=== PATIENT | female | born 1990 | race Caucasian/White ===

== ENCOUNTER 2017-09-05 22:42 | Emergency (ER) | payer OTHER ==
[~2017-09-05] VITALS: Ht 154.9 cm; Wt 94.3 kg
[~2017-09-05 22:42] MED LIST: ALLEGRA ALLERG180 MG PO; APRESOLINE25 MG PO; ATARAX,VISTARIL25 MG PO; AUGMENTIN875 MG PO; CAVAN-FOLATE D1 EACH PO; CEFDINIR300 MG PO; CEFUROXIME500 MG PO; CELLCEPT500 MG PO; CLARITIN10 M3 PO; CLARITIN10 MG PO; CYCLOSPORINE100 M2 PO; CYMBALTA30 MG PO; DOXEPIN HCL25 MG PO; EFFEXOR XR150 MG PO; EFFEXOR75 MG PO; ENDOCET 5-3251 EACH PO; FLEXERIL10 MG PO; GABAPENTIN300 MG PO; HYDRALAZINE HCL25 MG PO; KLONOPIN0.5 M1 PO; LAMICTAL100 MG PO; LEVOTHYROXINE50 MCG PO; LORTAB 5-325 M1 EACH PO; LYRICA50 MG PO; Levothroid,Synthroid PO; MINOCYCLINE HC100 MG PO; MOBIC15 MG PO; MOTRIN800 MG PO; Motrin PO; PERCOCET 5/31 TABLET PO; PERCOCET 7.51 TABLET PO; PROMETHAZINE HC25 M1 PO; PROMETHAZINE HC50 M1 PO; PROTONIX40 MG PO; RELPAX40 MG PO; ROBAXIN500 MG PO; SANDIMMUNE100 MG PO; SYNTHROID50 MCG PO; TOPAMAX50 MG PO; TRAMADOL HCL50 MG PO; TRILIPIX135 MG PO; TYLENOL WITH C1 EACH PO; VITAMIN B12; VYVANSE50 MG PO; WELLBUTRIN SR200 MG PO; WELLBUTRIN100 MG PO; ZANAFLEX2 M1 PO; ZANAFLEX2 MG PO; ZOFRAN4 MG PO; [UNRECOGNIZED DRUG - OTHER] TP
[2017-09-06 00:03] LABS: HEMATOCRIT 42.7 % (36.0-46.0); MCH 31.7 PG (29.0-34.0); MCHC 34.2 G/DL (30.0-36.0); MCV 92.6 FL (83-99); PLATELET COUNT 442 K/uL (156-360); RBC DIS.WIDTH-CV 11.5 % (11.8-14.6); RBC DIS.WIDTH-SD 38.8 % (39-53); RED BLOOD COUNT 4.61 M/uL (3.80-5.20)
[2017-09-06 00:14] LABS: CHLORIDE 101 mEq/L (99-109); POTASSIUM 3.3 mEq/L (3.7-5.4); SODIUM 138 mEq/L (136-147)
[2017-09-06 00:16] LABS: GLUCOSE 70 mg/dL (70-99)
[2017-09-06 00:17] LABS: ANION GAP 13 MEQ/L (2-14)
[2017-09-06 00:18] LABS: TOTAL BILIRUBIN 0.3 mg/dL (0.0-1.0)
[2017-09-06 00:19] LABS: ALKALINE PHOSPHATASE 59 IU/L (3-129)
[2017-09-06 00:20] LABS: GFR ESTIMATE (CALCULATED) > 59 mL/min/
[2017-09-06 00:21] LABS: UREA NITROGEN (BUN) 10 mg/dL (9-23)
[2017-09-06 00:29] LABS: QUANTITATIVE HCG < 4.0 MIU/ML
[2017-09-06 02:03] LABS: C-REACTIVE PROTEIN 2.4 MG/L (0-10)
[2017-09-06 02:44] VITALS: BP 109/85
== END 2017-09-06 02:47 | disposition home or self-care (01) ==
LOC: EME 22:42
PROVIDERS: Physician Assistant
DX: M62.838 Other muscle spasm (principal); M43.6 Torticollis; R51 Headache; M54.2 Cervicalgia; E03.9 Hypothyroidism, unspecified; F17.200 Nicotine dependence, unspecified, uncomplicated
CPT/HCPCS: 72125; 80053; 84702; 85027; 86140; 99281; 99285; J3010; J7030

== ENCOUNTER 2018-07-03 22:46 | Emergency (ER) | payer OTHER ==
[~2018-07-03] VITALS: Ht 154.9 cm; Wt 92.9 kg
[2018-07-03 23:30] LABS: APPEARANCE CLEAR ((CLEAR)); BILIRUBIN NEGATIVE; BLOOD NEGATIVE; COLOR YELLOW ((YELLOW)); GLUCOSE (STRIP) NEGATIVE; KETONES NEGATIVE; LEUKOCYTES NEGATIVE; NITRITE NEGATIVE; PROTEIN (STRIP) NEGATIVE; SPECIFIC GRAVITY 1.015 (1.000-1.030); UCUL ADDED? NO; UROBILINOGEN 0.2 MG/DL (0.2-1.0)
[2018-07-03 23:45] LABS: HEMATOCRIT 40.1 % (36.0-46.0); HEMOGLOBIN 14.1 G/DL (11.9-15.5); MCHC 35.2 G/DL (30.0-36.0); MCV 91.1 FL (83-99); PLATELET COUNT 392 K/uL (156-360); RBC DIS.WIDTH-CV 11.6 % (11.8-14.6); RBC DIS.WIDTH-SD 38.8 % (39-53); WHITE BLOOD COUNT 12.7 K/uL (4.1-10.2)
[2018-07-03 23:55] LABS: CHLORIDE 106 mEq/L (99-109); POTASSIUM 3.7 mEq/L (3.7-5.4); SODIUM 140 mEq/L (136-147)
[2018-07-03 23:57] LABS: GLUCOSE 75 mg/dL (70-99)
[2018-07-04] LABS: CREATININE 0.9 mg/dL (0.6-1.3); GFR ESTIMATE (CALCULATED) > 59 mL/min/
[2018-07-04 00:01] LABS: UREA NITROGEN (BUN) 9 mg/dL (9-23)
[2018-07-04 00:09] LABS: QUANTITATIVE HCG < 4.0 MIU/ML
[2018-07-04 01:24] VITALS: BP 145/77
== END 2018-07-04 01:32 | disposition home or self-care (01) ==
LOC: EME 22:46
DX: M54.9 Dorsalgia, unspecified (principal); R10.9 Unspecified abdominal pain; R42 Dizziness and giddiness; R19.7 Diarrhea, unspecified; E03.9 Hypothyroidism, unspecified; Z90.49 Acquired absence of other specified parts of digestive tract; Z88.2 Allergy status to sulfonamides; Z88.5 Allergy status to narcotic agent; Z88.6 Allergy status to analgesic agent; F17.200 Nicotine dependence, unspecified, uncomplicated
CPT/HCPCS: 80048; 81003; 84702; 85027; 99281; 99284